=== PATIENT | female | born 1995 | race Hispanic/Latino ===

== ENCOUNTER 2023-09-28 15:18 | Emergency (ER) | payer OTHER ==
[~2023-09-28] VITALS: Ht 172.7 cm; Wt 122.5 kg
[2023-09-28 15:40] VITALS: PULSE 88; RESP 20; TEMP 99.1
[2023-09-28] MEDS ORDERED: PROMETHAZINE HC25 M1 PO (16:54)
[2023-09-28] MEDS ORDERED: CLINDAMYCIN HC300 MG PO (16:54)
[2023-09-28 17:29] VITALS: BP 129/93; PULSE 88; RESP 16; TEMP 98.7; O2SAT 96
== END 2023-09-28 17:07 | disposition home or self-care (01) ==
LOC: ER 15:28
DX: R50.9 Fever, unspecified (principal); J32.9 Chronic sinusitis, unspecified; K21.9 Gastro-esophageal reflux disease without esophagitis; F41.9 Anxiety disorder, unspecified; G40.909 Epilepsy, unspecified, not intractable, without status epilepticus; F43.10 Post-traumatic stress disorder, unspecified; G90.A Postural orthostatic tachycardia syndrome [POTS]; M79.7 Fibromyalgia
CPT/HCPCS: 99283